=== PATIENT | female | born 1950 | race African-American/Black ===

== ENCOUNTER 2021-03-18 01:37 | Inpatient (IN) ==
[2021-03-18] MEDS ORDERED: propofoL 200 MG/20 ML VIAL IV STA ×2 (01:50→03:44)
[2021-03-18] MEDS ORDERED: methylPREDNISolone SOD SUC 125 MG/2 ML VIAL IV STA (01:55)
[2021-03-18] MEDS ORDERED: ALBUTEROL/IPRATROPIUM 3 ML NEB RESP TX STA (01:55)
[2021-03-18] MEDS ORDERED: FUROSEMIDE 40 MG/4 ML VIAL IV STA (01:55)
[2021-03-18 02:23] LABS: Basophils % 0.5 % (0.0-0.8); Hematocrit 27.9 VOL% (35.7-47.0); Hemoglobin 8.3 GM/DL (12.0-16.0); Immature Granulocytes % 0.4 %; Immature Granulocytes Absolute 0.02 #; Lymphocytes # 0.4 10*3/uL (1.4-4.0); Lymphocytes % 7.7 % (21.3-54.2); Mean Corpuscular HGB Conc 29.7 GM/DL (32-36); Mean Corpuscular Volume 93.6 FL (87-102); Mean Platelet Volume 9.8 FL (9.6-12.0); Monocytes % 6.2 % (1.7-12.7); Neutrophils % 85.2 % (38.7-73.9); Platelet Count 228 T/CUMM (130-400); Red Blood Count 2.98 MC/CUMM (3.8-5.5); Red Cell Distribution Width 16.4 % (9.3-17.3); White Blood Count 5.7 T/CUMM (4-12)
[2021-03-18 02:33] LABS: Bilirubin,Urine Negative (Negative); Blood, Urine Large mg/dL (Negative); Glucose,Urine (UA) 50 mg/dL (Negative); Hyaline Casts,Urine 11 /LPF (0-3); Ketones,Urine Negative (Negative); Nitrite,Urine Negative (Negative); Protein,Urine 100 MG/DL; RBC,Urine 1004 /HPF (0-4); Urine Appearance CLEAR (Clear); Urine Color Red (Yellow); Urine Specific Gravity 1.009 (1.001-1.035); Urine Urobilinogen < 2.0 EU/DL (0.2-1.0)
[2021-03-18 02:43] LABS: ABG Base Excess -2.2 MMOL/L (-2.5-2.5); ABG Oxygen Saturation 94.3 % (95-100); ABG PCO2 55.2 MM HG (35-48); ABG PH 7.274 (7.35-7.45); ABG PO2 82.8 MM HG (80-95); ABG TCO2 26.7 MMOL/L (23-27)
[2021-03-18 02:51] LABS: Albumin 3.3 G/DL (3.4-5.0); Bilirubin,Total 1.2 MG/DL (0.20-1.00); Calcium 8.7 MG/DL (8.5-10.1); Potassium 4.7 MMOL/L (3.5-5.1); Total Protein 7.9 G/DL (6.4-8.2)
[2021-03-18] MEDS ORDERED: ALBUTEROL 2.5 MG/3 ML NEB RESP TX PRN (03:58)
[2021-03-18] MEDS ORDERED: ONDANSETRON 4 MG/2 ML VIAL IV PRN (03:59)
[2021-03-18] MEDS ORDERED: ACETAMINOPHEN 325 MG TABLET PO PRN (03:59)
[2021-03-18] MEDS ORDERED: DEXTROSE 50% 25 GM/50 ML VIAL IV PRN (04:15)
[2021-03-18] MEDS ORDERED: GLUCAGON 1 MG VIAL IM PRN (04:15)
[2021-03-18 05:37] LABS: ABG Base Excess -0.9 MMOL/L (-2.5-2.5); ABG HCO3 23.7 MMOL/L (20-26); ABG Oxygen Saturation 97.6 % (95-100); ABG PCO2 51.5 MM HG (35-48); ABG PH 7.306 (7.35-7.45); ABG PO2 99.9 MM HG (80-95); ABG TCO2 24.3 MMOL/L (23-27); Allen Test Positive; Pt O2 Delivery Device Ventilator
[2021-03-18] MEDS: ALBUTEROL/IPRATROPIUM 3 ML NEB RESP TX SCH ×3 (07:40→20:11)
[2021-03-18 07:52] LABS: ABG Base Excess -0.6 MMOL/L (-2.5-2.5); ABG Oxygen Saturation 99.1 % (95-100); ABG PCO2 47.3 MM HG (35-48); ABG PH 7.337 (7.35-7.45); ABG TCO2 23.9 MMOL/L (23-27)
[2021-03-18] MEDS ORDERED: FUROSEMIDE 40 MG/4 ML VIAL IV SCH (08:00)
[2021-03-18] MEDS: ENOXAPARIN 30 MG/0.3 ML SYRINGE SUBCUT SCH (08:23)
[2021-03-18] MEDS: INSULIN REGULAR 100 UNIT/ML SUBCUT SCH ×3 (08:23→17:28)
[2021-03-18] MEDS: PANTOPRAZOLE 40 MG VIAL IV SCH (08:23)
[2021-03-18] MEDS: methylPREDNISolone SOD SUC 40 MG/1 ML VIAL IV SCH ×2 (08:24→22:00)
[2021-03-18] MEDS ORDERED: ASPIRIN EC 81 MG TABLET PO SCH (09:26)
[2021-03-18] MEDS: METOPROLOL TARTRATE 25 MG TABLET NG SCH ×2 (09:55→22:00)
[2021-03-18] MEDS: FUROSEMIDE 40 MG/4 ML VIAL IV SCH (15:47)
[2021-03-19] MEDS: INSULIN REGULAR 100 UNIT/ML SUBCUT SCH ×5 (00:11→23:50)
[2021-03-19] MEDS: ALBUTEROL/IPRATROPIUM 3 ML NEB RESP TX SCH ×5 (00:47→19:01)
[2021-03-19] MEDS ORDERED: MIDAZOLAM 100 MG in SODIUM CHLORIDE 0.9% 80 ML IV PRN (01:41)
[2021-03-19 04:22] LABS: ABG Base Excess 1.8 MMOL/L (-2.5-2.5); ABG Oxygen Saturation 99.3 % (95-100); ABG PCO2 41.9 MM HG (35-48); ABG PH 7.409 (7.35-7.45); Allen Test Positive; Pt O2 Delivery Device Ventilator
[2021-03-19 08:18] LABS: Hematocrit 24.1 VOL% (35.7-47.0); Hemoglobin 7.2 GM/DL (12.0-16.0); Immature Granulocytes % 0.7 %; Immature Granulocytes Absolute 0.08 #; Lymphocytes # 0.5 10*3/uL (1.4-4.0); Lymphocytes % 4.3 % (21.3-54.2); Mean Corpuscular HGB Conc 29.9 GM/DL (32-36); Mean Corpuscular Volume 90.6 FL (87-102); Mean Platelet Volume 10.4 FL (9.6-12.0); Monocytes % 5.6 % (1.7-12.7); Neutrophils % 89.4 % (38.7-73.9); Platelet Count 215 T/CUMM (130-400); Red Blood Count 2.66 MC/CUMM (3.8-5.5); Red Cell Distribution Width 16.5 % (9.3-17.3); White Blood Count 11.5 T/CUMM (4-12)
[2021-03-19 08:27] LABS: Calcium 8.4 MG/DL (8.5-10.1); Osmolality,Calculated 313.6 MOS/KG (273-304)
[2021-03-19 08:42] LABS: Hypochromasia 1+; Lymphocytes 4 % (20-55); Microcytosis 1+; Segmented Neutrophils 92 % (50-85); Total Cells Counted 100
[2021-03-19 08:43] LABS: Ovalocytes Slight; Platelet Estimate Normal
[2021-03-19] MEDS: FUROSEMIDE 40 MG/4 ML VIAL IV SCH ×2 (09:30→15:05)
[2021-03-19] MEDS: ENOXAPARIN 30 MG/0.3 ML SYRINGE SUBCUT SCH (10:30)
[2021-03-19] MEDS: PANTOPRAZOLE 40 MG VIAL IV SCH (10:30)
[2021-03-19] MEDS: ASPIRIN CHEW 81 MG TABLET PO SCH (10:30)
[2021-03-19] MEDS: METOPROLOL TARTRATE 25 MG TABLET NG SCH ×2 (10:30→21:19)
[2021-03-19] MEDS: methylPREDNISolone SOD SUC 40 MG/1 ML VIAL IV SCH ×2 (10:30→22:06)
[2021-03-19] MEDS: hydrALAZINE 20 MG/1 ML VIAL IV PRN (11:29)
[2021-03-19] MEDS ORDERED: amLODIPine 5 MG TABLET NG STA (12:13)
[2021-03-20] MEDS: ALBUTEROL/IPRATROPIUM 3 ML NEB RESP TX SCH ×4 (00:20→21:39)
[2021-03-20 03:45] LABS: ABG Base Excess 3.4 MMOL/L (-2.5-2.5); ABG HCO3 27.4 MMOL/L (20-26); ABG Oxygen Saturation 88.8 % (95-100); ABG PCO2 42.2 MM HG (35-48); ABG PO2 56.9 MM HG (80-95); ABG TCO2 26.2 MMOL/L (23-27)
[2021-03-20] MEDS: INSULIN REGULAR 100 UNIT/ML SUBCUT SCH ×3 (06:52→17:01)
[2021-03-20 07:01] LABS: Hematocrit 24.6 VOL% (35.7-47.0); Hemoglobin 7.4 GM/DL (12.0-16.0); Immature Granulocytes % 0.7 %; Immature Granulocytes Absolute 0.07 #; Lymphocytes # 0.4 10*3/uL (1.4-4.0); Lymphocytes % 3.7 % (21.3-54.2); Mean Corpuscular HGB Conc 30.1 GM/DL (32-36); Mean Corpuscular Volume 90.1 FL (87-102); Mean Platelet Volume 9.6 FL (9.6-12.0); Monocytes % 2.9 % (1.7-12.7); NRBC # 0.02 10*3/uL; Neutrophils % 92.7 % (38.7-73.9); Platelet Count 201 T/CUMM (130-400); Red Blood Count 2.73 MC/CUMM (3.8-5.5); Red Cell Distribution Width 16.6 % (9.3-17.3); White Blood Count 9.6 T/CUMM (4-12)
[2021-03-20 07:24] LABS: Lymphocytes 2 % (20-55); Platelet Estimate Normal; Segmented Neutrophils 95 % (50-85); Total Cells Counted 100
[2021-03-20 07:25] LABS: Hypochromasia 1+
[2021-03-20 07:32] LABS: Calcium 8.7 MG/DL (8.5-10.1); Osmolality,Calculated 305.4 MOS/KG (273-304); Potassium 3.7 MMOL/L (3.5-5.1)
[2021-03-20 07:37] LABS: Folate 14.59 NG/ML (5.38-24.0); Vitamin B12 > 2000 PG/ML (211-911)
[2021-03-20 07:37] LABS: % Iron Saturation 8.9 % (18-50); Ferritin 151.6 ng/ml (8-252)
[2021-03-20] MEDS: METOPROLOL TARTRATE 25 MG TABLET NG SCH ×2 (08:46→21:14)
[2021-03-20] MEDS: amLODIPine 5 MG TABLET NG SCH (08:46)
[2021-03-20] MEDS: ASPIRIN CHEW 81 MG TABLET PO SCH (08:47)
[2021-03-20] MEDS: methylPREDNISolone SOD SUC 40 MG/1 ML VIAL IV SCH ×2 (08:47→21:14)
[2021-03-20] MEDS: PANTOPRAZOLE 40 MG VIAL IV SCH (08:47)
[2021-03-20] MEDS: FUROSEMIDE 40 MG/4 ML VIAL IV SCH ×2 (08:47→16:32)
[2021-03-20] MEDS: ENOXAPARIN 30 MG/0.3 ML SYRINGE SUBCUT SCH (08:48)
[2021-03-20] MEDS ORDERED: SODIUM CHLORIDE 0.9% 1,000 ML IV PRN ×2 (10:04→10:58)
[2021-03-20] MEDS ORDERED: DEXTROSE 50% 25 GM/50 ML VIAL IV PRN (10:40)
[2021-03-20 17:14] LABS: Protein/Creatinine Ratio,Urine 2.4 RATIO
[2021-03-21] MEDS: INSULIN REGULAR 100 UNIT/ML SUBCUT SCH ×4 (00:20→17:32)
[2021-03-21] MEDS: hydrALAZINE 20 MG/1 ML VIAL IV PRN ×2 (00:46→11:55)
[2021-03-21 04:19] LABS: ABG Base Excess 3.1 MMOL/L (-2.5-2.5); ABG HCO3 27.6 MMOL/L (20-26); ABG Oxygen Saturation 96.6 % (95-100); ABG PCO2 42.2 MM HG (35-48); ABG PH 7.434 (7.35-7.45); ABG PO2 89.6 MM HG (80-95); ABG TCO2 28.9 MMOL/L (23-27)
[2021-03-21 06:06] LABS: Hematocrit 31.7 VOL% (35.7-47.0); Immature Granulocytes % 1.3 %; Immature Granulocytes Absolute 0.12 #; Lymphocytes # 0.3 10*3/uL (1.4-4.0); Lymphocytes % 3.4 % (21.3-54.2); Mean Corpuscular HGB Conc 30.9 GM/DL (32-36); Mean Corpuscular Volume 89.5 FL (87-102); Mean Platelet Volume 10.4 FL (9.6-12.0); Monocytes % 3.5 % (1.7-12.7); NRBC # 0.02 10*3/uL; Neutrophils % 91.8 % (38.7-73.9); Platelet Count 220 T/CUMM (130-400); Red Cell Distribution Width 15.8 % (9.3-17.3); White Blood Count 9.2 T/CUMM (4-12)
[2021-03-21 06:39] LABS: Calcium 8.7 MG/DL (8.5-10.1); Osmolality,Calculated 313.3 MOS/KG (273-304); Potassium 3.3 MMOL/L (3.5-5.1)
[2021-03-21 06:40] LABS: Hemoglobin 9.8 GM/DL (12.0-16.0); Red Blood Count 3.54 MC/CUMM (3.8-5.5)
[2021-03-21] MEDS: ALBUTEROL/IPRATROPIUM 3 ML NEB RESP TX SCH ×3 (06:49→19:17)
[2021-03-21 06:57] LABS: Hypochromasia 1+; Lymphocytes 3 % (20-55); Microcytosis 1+; Platelet Estimate Adequate; Segmented Neutrophils 95 % (50-85); Total Cells Counted 100
[2021-03-21] MEDS ORDERED: IRON SUCROSE 200 MG in SODIUM CHLORIDE 0.9% 100 ML IV SCH (09:00)
[2021-03-21] MEDS: FERROUS SULFATE 325 MG TABLET PO SCH (09:18)
[2021-03-21] MEDS: ASPIRIN CHEW 81 MG TABLET PO SCH (09:19)
[2021-03-21] MEDS: amLODIPine 5 MG TABLET NG SCH (09:19)
[2021-03-21] MEDS: MULTIVITAMIN (CENTRUM) TABLET PO SCH (09:19)
[2021-03-21] MEDS: METOPROLOL TARTRATE 25 MG TABLET NG SCH ×2 (09:19→20:46)
[2021-03-21] MEDS: ENOXAPARIN 30 MG/0.3 ML SYRINGE SUBCUT SCH (09:23)
[2021-03-21] MEDS: FUROSEMIDE 40 MG/4 ML VIAL IV SCH ×2 (09:28→16:53)
[2021-03-21] MEDS: methylPREDNISolone SOD SUC 40 MG/1 ML VIAL IV SCH ×2 (09:29→20:45)
[2021-03-21] MEDS: PANTOPRAZOLE 40 MG VIAL IV SCH (09:32)
[2021-03-21] MEDS: FERRIC GLUCONATE COMPLEX 125 MG in SODIUM CHLORIDE 0.9% 100 ML IV SCH (09:33)
[2021-03-21] MEDS ORDERED: POTASSIUM CHLORIDE 10 MEQ TABLET PO ONE (15:48)
[2021-03-21] MEDS ORDERED: amLODIPine 5 MG TABLET PO ONE (15:52)
[2021-03-22] MEDS: INSULIN REGULAR 100 UNIT/ML SUBCUT SCH ×4 (00:18→18:29)
[2021-03-22] MEDS: hydrALAZINE 20 MG/1 ML VIAL IV PRN (00:33)
[2021-03-22] MEDS: ALBUTEROL/IPRATROPIUM 3 ML NEB RESP TX SCH ×5 (04:24→20:35)
[2021-03-22 04:38] LABS: Allen Test Positive; Pt O2 Delivery Device Room Air
[2021-03-22 04:39] LABS: ABG Base Excess 4.4 MMOL/L (-2.5-2.5); ABG HCO3 28.6 MMOL/L (20-26); ABG Oxygen Saturation 92.1 % (95-100); ABG PH 7.461 (7.35-7.45); ABG PO2 65.8 MM HG (80-95); ABG TCO2 29.8 MMOL/L (23-27)
[2021-03-22 05:30] LABS: Basophils % 0.1 % (0.0-0.8); Hemoglobin 10.9 GM/DL (12.0-16.0); Immature Granulocytes % 3.7 %; Immature Granulocytes Absolute 0.41 #; Lymphocytes # 0.4 10*3/uL (1.4-4.0); Lymphocytes % 3.8 % (21.3-54.2); Mean Corpuscular HGB Conc 31.1 GM/DL (32-36); Mean Corpuscular Volume 88.8 FL (87-102); Mean Platelet Volume 10.5 FL (9.6-12.0); Monocytes % 2.7 % (1.7-12.7); Neutrophils % 89.7 % (38.7-73.9); Platelet Count 242 T/CUMM (130-400); Red Blood Count 3.94 MC/CUMM (3.8-5.5); Red Cell Distribution Width 15.8 % (9.3-17.3); White Blood Count 10.9 T/CUMM (4-12)
[2021-03-22 05:53] LABS: Hypochromasia 1+; Lymphocytes 4 % (20-55); Microcytosis 1+; Nucleated Red Blood Cells 1 (0-5); Platelet Estimate Adequate; Segmented Neutrophils 90 % (50-85); Total Cells Counted 100
[2021-03-22 05:57] LABS: Potassium 3.4 MMOL/L (3.5-5.1)
[2021-03-22] MEDS: MULTIVITAMIN (CENTRUM) TABLET PO SCH (08:17)
[2021-03-22] MEDS: ASPIRIN CHEW 81 MG TABLET PO SCH (08:17)
[2021-03-22] MEDS: METOPROLOL TARTRATE 25 MG TABLET NG SCH ×2 (08:17→21:40)
[2021-03-22] MEDS: methylPREDNISolone SOD SUC 40 MG/1 ML VIAL IV SCH ×2 (08:18→21:40)
[2021-03-22] MEDS: amLODIPine 10 MG TABLET NG SCH (08:18)
[2021-03-22] MEDS: ENOXAPARIN 30 MG/0.3 ML SYRINGE SUBCUT SCH (08:18)
[2021-03-22] MEDS: PANTOPRAZOLE 40 MG VIAL IV SCH (08:19)
[2021-03-22] MEDS: FUROSEMIDE 40 MG/4 ML VIAL IV SCH ×2 (08:19→15:19)
[2021-03-22] MEDS: FERRIC GLUCONATE COMPLEX 125 MG in SODIUM CHLORIDE 0.9% 100 ML IV SCH (08:20)
[2021-03-22] MEDS: FERROUS SULFATE 325 MG TABLET PO SCH (08:30)
[2021-03-22] MEDS ORDERED: POTASSIUM CHLORIDE 10 MEQ TABLET PO ONE (10:13)
[2021-03-22] MEDS: hydrALAZINE 25 MG TABLET PO SCH ×2 (15:19→21:40)
[2021-03-23] MEDS: INSULIN REGULAR 100 UNIT/ML SUBCUT SCH ×3 (01:25→13:16)
[2021-03-23] MEDS: ALBUTEROL/IPRATROPIUM 3 ML NEB RESP TX SCH ×3 (01:40→13:56)
[2021-03-23 05:32] LABS: Basophils % 0.1 % (0.0-0.8); Hematocrit 35.4 VOL% (35.7-47.0); Hemoglobin 10.9 GM/DL (12.0-16.0); Lymphocytes # 0.4 10*3/uL (1.4-4.0); Lymphocytes % 4.3 % (21.3-54.2); Mean Corpuscular HGB Conc 30.8 GM/DL (32-36); Mean Corpuscular Volume 88.7 FL (87-102); Mean Platelet Volume 10.4 FL (9.6-12.0); Monocytes % 4.1 % (1.7-12.7); Neutrophils % 89.5 % (38.7-73.9); Platelet Count 227 T/CUMM (130-400); Red Blood Count 3.99 MC/CUMM (3.8-5.5); Red Cell Distribution Width 15.7 % (9.3-17.3); White Blood Count 9.9 T/CUMM (4-12)
[2021-03-23 05:41] LABS: Calcium 8.8 MG/DL (8.5-10.1); Osmolality,Calculated 317.1 MOS/KG (273-304); Potassium 3.5 MMOL/L (3.5-5.1)
[2021-03-23 05:54] LABS: Hypochromasia 1+; Lymphocytes 1 % (20-55); Microcytosis 1+; Ovalocytes Slight; Segmented Neutrophils 97 % (50-85); Total Cells Counted 100
[2021-03-23 05:55] LABS: Platelet Estimate Normal
[2021-03-23] MEDS ORDERED: GLIMEPIRIDE 4 MG TABLET PO SCH (07:30)
[2021-03-23] MEDS: ASPIRIN CHEW 81 MG TABLET PO SCH (08:56)
[2021-03-23] MEDS: MULTIVITAMIN (CENTRUM) TABLET PO SCH (08:56)
[2021-03-23] MEDS: FERROUS SULFATE 325 MG TABLET PO SCH (08:57)
[2021-03-23] MEDS: METOPROLOL TARTRATE 25 MG TABLET NG SCH (08:57)
[2021-03-23] MEDS: amLODIPine 10 MG TABLET NG SCH (08:57)
[2021-03-23] MEDS ORDERED: POTASSIUM CHLORIDE 10 MEQ TABLET PO SCH (09:00)
[2021-03-23] MEDS: FUROSEMIDE 40 MG/4 ML VIAL IV SCH (09:00)
[2021-03-23] MEDS: PANTOPRAZOLE 40 MG VIAL IV SCH (09:11)
[2021-03-23] MEDS: methylPREDNISolone SOD SUC 40 MG/1 ML VIAL IV SCH (09:13)
[2021-03-23] MEDS: ENOXAPARIN 30 MG/0.3 ML SYRINGE SUBCUT SCH (09:14)
[2021-03-23] MEDS: FERRIC GLUCONATE COMPLEX 125 MG in SODIUM CHLORIDE 0.9% 100 ML IV SCH (10:16)
[2021-03-23 16:30] VITALS: BP 168/76
[2021-03-24] MEDS ORDERED: FUROSEMIDE 80 MG TABLET PO SCH (09:00)
== END 2021-03-23 15:52 | disposition home health service (06) | DRG 291 ==
LOC: EDBD → N.ED 01:37 → SUATTDRO 03:58 → N.EDINP 03:58 → N.TELES 03-19 16:14
PROVIDERS: ADMIT Internal Medicine; ATTEND Internal Medicine